=== PATIENT | male | born 1930 | race Caucasian/White ===

== ENCOUNTER 2021-10-26 22:03 | Emergency (ER) | payer OTHER, MEDICARE, BC ==
[~2021-10-26] VITALS: Ht 190.5 cm; Wt 100.0 kg
[~2021-10-26 22:03] MED LIST: ACET-2615 PO; APIX5TAB3 PO; CARV3.1289 PO; GLUC1TAB9 PO; METF-436 PO; PIOG45TA5 PO; SAXA2.5T PO
[2021-10-26 22:43] LABS: BASOPHILS # (AUTO) 0.1 X10'3 (0-0.2); BASOPHILS % (AUTO) 1.2 % (0-1); EOSINOPHILS % (AUTO) 0.2 % (0-6); HEMATOCRIT 44.4 % (42.0-52.0); HEMOGLOBIN 14.6 g/dl (14.0-17.9); LYMPHOCYTES # (AUTO) 0.4 X10'3 (1.1-4.8); LYMPHOCYTES % (AUTO) 4.4 % (21-51); MEAN CORPUSCULAR HEMOGLOBIN 31.3 PG (27.0-31.0); MEAN CORPUSCULAR HGB CONC 32.9 g/dL (33.0-36.5); MEAN CORPUSCULAR VOLUME 95.3 FL (78-98); MEAN PLATELET VOLUME 8.1 FL (7.4-10.4); MONOCYTES # (AUTO) 1.1 X10'3 (0-0.9); NEUTROPHILS # (AUTO) 7.4 X10'3 (1.8-7.7); NEUTROPHILS % (AUTO) 82.2 % (42-75); PLATELET COUNT 227 X10'3 (140-440); RED BLOOD COUNT 4.66 X10'6 (4.70-6.10); RED CELL DISTRIBUTION WIDTH 13.7 % (11.5-14.5)
[2021-10-26 22:54] LABS: ALANINE AMINOTRANSFERASE 12 U/L (12-78); ALBUMIN 3.4 G/DL (3.4-5.0); ALKALINE PHOSPHATASE 80 IU/L (46-116); ANION GAP 8 (8-16); ASPARTATE AMINO TRANSFERASE 9 U/L (10-37); BILIRUBIN,TOTAL 1.1 MG/DL (0.1-1.0); BLOOD UREA NITROGEN 23 MG/DL (7-18); BUN/CREATININE RATIO 14.3 (5.4-32.0); CALCIUM 8.9 MG/DL (8.5-10.1); CHLORIDE 103 MMOL/L (99-107); CREATININE 1.61 MG/DL (0.60-1.10); GLUCOSE 286 MG/DL (70-104); POTASSIUM 4.3 MMOL/L (3.5-5.1); SODIUM 134 MMOL/L (135-145); TOTAL CARBON DIOXIDE 23.2 MMOL/L (24-32); TOTAL PROTEIN 6.9 G/DL (6.4-8.2); eGFR 41 ML/MIN
[2021-10-26] MEDS ORDERED: pantoprazole 40MG/NS 100ML BAG 100 ML IV STA (23:28)
[2021-10-26] MEDS ORDERED: famotidine/PF 10 mg/ml inj IV ONE (23:30)
--- NOTE | 2021-10-27 00:06 | NUR ---
IVP X2 GIVEN BY JOHN GONZALEZ
[2021-10-27] MEDS ORDERED: ondansetron/PF 4mg/2ml inj IV ONE (00:15)
[2021-10-27] MEDS ORDERED: LIDOcaine Viscous 15ml cup MM ONE (00:15)
[2021-10-27] MEDS ORDERED: mag hydrox/Alum hydrox/simeth 30ml oral suspension PO ONE ×2 (00:15→01:00)
--- NOTE | 2021-10-27 00:41 | NUR ---
PO MED X2 GIVEN IVP GIVEN BY JOHN GONZALEZ
[2021-10-27 00:42] VITALS: BP 122/80
[2021-10-27] MEDS ORDERED: sucralfate 1 gm tablet PO ONE (01:00)
--- NOTE | 2021-10-27 01:23 | NUR ---
PO MED X2 GIVEN
[2021-10-27] MEDS ORDERED: PANT-47 PO (01:49)
[2021-10-27] MEDS ORDERED: ONDA4TAB12 PO (01:49)
--- NOTE | 2021-10-27 02:12 | NUR ---
IV DC'D PT BEING DISCHARGED DRESSING APPLIED
[2021-11-01] MEDS ORDERED: GLIM4TAB7 PO ×2 (05:31→07:30)
[2021-11-01] MEDS ORDERED: CLOP75TA34 PO (05:33)
[2021-11-01] MEDS ORDERED: METF-436 PO (07:30)
[2021-11-01] MEDS ORDERED: AMIO100T4 PO (07:31)
[2021-11-01] MEDS ORDERED: LEVE10002 PO (07:32)
[2021-11-01] MEDS ORDERED: SACU1TAB7 (07:33)
[2021-11-01] MEDS ORDERED: EMPA10TA PO (07:34)
[2021-11-01] MEDS ORDERED: METO-395 PO (07:35)
== END 2021-10-27 02:13 | disposition home or self-care (01) ==
LOC: ER 22:04
DX: K21.9 Gastro-esophageal reflux disease without esophagitis (principal); R07.89 Other chest pain; R06.02 Shortness of breath; I25.10 Atherosclerotic heart disease of native coronary artery without angina pectoris; I10 Essential (primary) hypertension; I25.2 Old myocardial infarction; E11.9 Type 2 diabetes mellitus without complications; Z85.9 Personal history of malignant neoplasm, unspecified; Z90.49 Acquired absence of other specified parts of digestive tract; Z95.0 Presence of cardiac pacemaker; Z72.89 Other problems related to lifestyle; Z79.899 Other long term (current) drug therapy
CPT/HCPCS: 36415; 71045; 80053; 83880; 84484; 85025; 93005; 96374; 96375; 99285; C9113; J2405; J3490; A4615

== ENCOUNTER 2022-04-24 12:52 | Outpatient (CLI) | payer OTHER, MEDICARE, BC ==
[~2022-04-24 12:52] MED LIST changes: -ACET-2615 PO; +AMIO100T4 PO; -CARV3.1289 PO; +CLOP75TA34 PO; +EMPA10TA PO; +GLIM4TAB7 PO; -GLUC1TAB9 PO; +LEVE10002 PO; +METO-395 PO; -PIOG45TA5 PO; +SACU1TAB7; -SAXA2.5T PO
[2022-04-24 13:21] LABS: CLARITY,URINE CLOUDY (Clear); COLOR,URINE YELLOW (Yellow); GLUCOSE, URINE >=1000 mg/dl (Neg); KETONES,URINE NEGATIVE (Neg); LEUKOCYTE ESTERASE ,URINE MODERATE (Neg); NITRITES, URINE NEGATIVE (Neg); OCCULT BLOOD,URINE MODERATE (Neg); PROTEIN,URINE 30 mg/dl (Neg); UROBILINOGEN,URINE 0.2 E.U/dL (0.2-1.0)
[2022-04-24 13:31] LABS: UA COLLECTION TYPE NON-SPECIFIED
[2022-04-24 13:32] LABS: BACTERIA,URINE 3+ /HPF (Neg); MUCUS STRANDS NONE SEEN /LPF (Neg); SQUAMOUS EPITHELIAL CELL,UR NONE SEEN /LPF (FEW); WBC,URINE TNTC /HPF (0-4)
== END 2022-04-24 23:59 | disposition home or self-care (01) ==
LOC: LAB SPEC 12:52
PROVIDERS: ATTEND Family Medicine
DX: N39.0 Urinary tract infection, site not specified (principal)
CPT/HCPCS: 81001; 87077; 87088; 87186